=== PATIENT | male | born 1995 | race Caucasian/White ===

== ENCOUNTER 2021-07-17 22:39 | Emergency (ER) | payer OTHER ==
[~2021-07-17] VITALS: Ht 180.3 cm; Wt 64.0 kg
[2021-07-17 22:41] VITALS: BP 138/85
== END 2021-07-18 02:04 | disposition home or self-care (01) ==
LOC: M ED 22:39
DX: T81.30XA Disruption of wound, unspecified, initial encounter (principal); X58.XXXA Exposure to other specified factors, initial encounter; Y92.89 Other specified places as the place of occurrence of the external cause; F17.210 Nicotine dependence, cigarettes, uncomplicated

== ENCOUNTER → 2021-07-26 | Outpatient (REF) | payer OTHER | LOC: M LAB REF 15:28 | PROVIDERS: ATTEND Physician Assistant | DX: J02.9 Acute pharyngitis, unspecified (principal) ==